=== PATIENT | female | born 1965 | race Hispanic/Latino ===

== ENCOUNTER 2021-12-10 18:26 | Inpatient (IN) | payer MEDICARE ==
[~2021-12-10] VITALS: Ht 157.5 cm; Wt 77.6 kg
[2021-12-10 18:51] LABS: BASOPHILS # (AUTO) 0.1 (0.0-0.1); BASOPHILS % 0.5 % (0.0-1.0); EOSINOPHILS # (AUTO) 0.2 (0.0-0.4); EOSINOPHILS % 1.6 % (0.0-6.0); HEMATOCRIT 44.6 % (34.2-44.1); HEMOGLOBIN 14.3 g/dL (12.0-16.0); LYMPHOCYTES # (AUTO) 2.8 (1.0-3.2); LYMPHOCYTES % 26.1 % (18.0-39.1); MEAN CORPUSCULAR HEMOGLOBIN 30.6 pg (28-32); MEAN CORPUSCULAR HGB CONC 32.1 g/dL (31-35); MEAN CORPUSCULAR VOLUME 95.5 fL (81-99); MONOCYTES # (AUTO) 0.7 (0.2-0.8); MONOCYTES % 6.6 % (4.4-11.3); NEUTROPHILS # (AUTO) 6.9 (2.1-6.9); NEUTROPHILS % 64.8 % (38.7-80.0); PLATELET COUNT 227 x10e3/uL (140-360); RED BLOOD COUNT 4.67 x10e6/uL (3.6-5.1); RED CELL DISTRIBUTION WIDTH 13.8 % (11.7-14.4)
[2021-12-10 19:00] LABS: INR 0.9; PARTIAL THROMBOPLASTIN TIME 29.9 seconds (23.8-35.5); PROTHROMBIN TIME 12.8 seconds (11.9-14.5)
[2021-12-10] MEDS ORDERED: DILTIAZEM HCL 5 MG/ML 5 ML VIAL IV ONE (19:00)
[2021-12-10 19:07] LABS: ALBUMIN 3.6 g/dL (3.5-5.0); ALBUMIN/GLOBULIN RATIO 0.9 (0.8-2.0); CALCIUM 9.3 mg/dL (8.4-10.2); CREATININE, SERUM 1.07 mg/dL (0.57-1.11)
[2021-12-10 19:15] LABS: CREATINE KINASE MB 1.7 ng/mL (0-5.0)
[2021-12-10] MEDS ORDERED: INSULIN REGULAR, HUMAN 100 UNIT/1 ML SQ ONE ×2 (19:15→22:45)
[2021-12-10] MEDS ORDERED: SODIUM CHLORIDE 0.9% 1000ML 1,000 ML IV ONE (19:15)
[2021-12-10] MEDS ORDERED: INSULIN REGULAR, HUMAN 100 UNIT/1 ML ONE (19:24)
[2021-12-10] MEDS ORDERED: SODIUM CHLORIDE 0.9% 1000ML 1,000 ML ONE (19:24)
[2021-12-10 19:49] LABS: CLARITY,URINE CLEAR (CLEAR); COLOR,URINE YELLOW (YELLOW); LEUKOCYTE ESTERASE ,URINE NEGATIVE (NEGATIVE); NITRITE,URINE NEGATIVE (NEGATIVE); PROTEIN,URINE DIPSTICK NEGATIVE (NEGATIVE)
[2021-12-10 19:50] LABS: KETONES,URINE NEGATIVE (NEGATIVE); URINE UROBILINOGEN 0.2 mg/dL (0.2 - 1)
[2021-12-10 20:00] LABS: BACTERIA,URINE FEW /HPF; EPITHELIAL CELLS,URINE FEW /LPF; RBC,URINE 0-5 /HPF (0-5); WBC,URINE (MAN) 0-5 /HPF (0-5)
[2021-12-10] MEDS ORDERED: AMIODARONE 900MG 500 ML IV ONE (20:00)
[2021-12-10] MEDS ORDERED: ACETAMINOPHEN 325 MG TAB PO ONE (20:00)
[2021-12-10] MEDS ORDERED: AMIODARONE HCL 150 MG/100 ML BAG IV ONE (20:00)
[2021-12-10] MEDS ORDERED: ACETAMINOPHEN 325 MG TAB ONE (20:04)
[2021-12-10] MEDS: INSULIN REGULAR, HUMAN 100 UNIT/1 ML SQ SCH (22:00)
[2021-12-10] MEDS ORDERED: MINERAL OIL 132 ML BTL PR ONE (22:00)
[2021-12-10] MEDS ORDERED: DEXTROSE 50% SYRINGE 50 ML IV PRN (22:00)
[2021-12-10] MEDS ORDERED: SODIUM CHLORIDE FLUSH 10 ML SYR INJ PRN (22:00)
[2021-12-10] MEDS: METOPROLOL TARTRATE 50 MG TAB PO SCH (22:00)
[2021-12-10] MEDS ORDERED: SOD PHOSPHATE/SOD BIPHOSPHATE ENEMA 132 ML BTL PR ONE (22:12)
[2021-12-10] MEDS: ENOXAPARIN INJ 80 MG/0.8 ML SYR SC SCH (22:38)
[2021-12-10 23:00] VITALS: BP 129/89
[2021-12-11] VITALS (25 sets, daily range): BP systolic 126–163; BP diastolic 49–89
[2021-12-11 02:29] LABS: CREATINE KINASE MB 3.4 ng/mL (0-5.0)
[2021-12-11] MEDS ORDERED: AMIODARONE 900MG 500 ML IV ONE (03:15)
[2021-12-11 05:26] LABS: BASOPHILS # (AUTO) 0.1 (0.0-0.1); BASOPHILS % 0.5 % (0.0-1.0); EOSINOPHILS # (AUTO) 0.2 (0.0-0.4); EOSINOPHILS % 1.4 % (0.0-6.0); HEMATOCRIT 39.4 % (34.2-44.1); HEMOGLOBIN 12.9 g/dL (12.0-16.0); LYMPHOCYTES % 27.2 % (18.0-39.1); MEAN CORPUSCULAR HEMOGLOBIN 30.8 pg (28-32); MEAN CORPUSCULAR HGB CONC 32.7 g/dL (31-35); MONOCYTES # (AUTO) 0.8 (0.2-0.8); MONOCYTES % 7.6 % (4.4-11.3); NEUTROPHILS # (AUTO) 6.8 (2.1-6.9); NEUTROPHILS % 62.7 % (38.7-80.0); PLATELET COUNT 220 x10e3/uL (140-360); RED BLOOD COUNT 4.19 x10e6/uL (3.6-5.1)
[2021-12-11 06:45] LABS: CREATINE KINASE MB 5.1 ng/mL (0-5.0)
[2021-12-11 06:51] LABS: ALBUMIN 3.1 g/dL (3.5-5.0); ALBUMIN/GLOBULIN RATIO 0.9 (0.8-2.0); ANION GAP 11.8 mmol/L (8-16); CALCIUM 8.5 mg/dL (8.4-10.2); CHOL/HDL RATIO 2.8 (3.0-3.6); CREATININE, SERUM 0.79 mg/dL (0.57-1.11); POTASSIUM 3.8 mmol/L (3.5-5.1)
[2021-12-11] MEDS: INSULIN REGULAR, HUMAN 100 UNIT/1 ML SQ SCH ×3 (08:49→20:35)
[2021-12-11] MEDS: ASPIRIN 81 MG ENTERIC COATED PO SCH (08:49)
[2021-12-11] MEDS: ENOXAPARIN INJ 80 MG/0.8 ML SYR SC SCH (08:49)
[2021-12-11] MEDS: METOPROLOL TARTRATE 50 MG TAB PO SCH ×2 (08:49→20:33)
[2021-12-11] MEDS ORDERED: BUSPIRONE HCL5 MG PO (10:52)
[2021-12-11] MEDS ORDERED: QUINAPRIL HCL20 MG PO (10:52)
[2021-12-11] MEDS ORDERED: ASPIRIN81 MG PO (10:52)
[2021-12-11] MEDS ORDERED: ATORVASTATIN CA20 MG PO (10:52)
[2021-12-11] MEDS ORDERED: NOVOLIN 70100 UNIT/3 SQ (10:52)
[2021-12-11] MEDS ORDERED: NEURONTIN300 MG PO (10:52)
[2021-12-11] MEDS ORDERED: PROZAC10 MG PO (10:52)
[2021-12-11] MEDS ORDERED: PROZAC20 MG PO (10:52)
[2021-12-11] MEDS ORDERED: NOVOLIN R100 UNIT/1 (10:52)
[2021-12-11] MEDS ORDERED: INSULIN LISPRO 100 UNIT/1 ML 3ML VIAL SQ SCH (11:30)
[2021-12-11] MEDS ORDERED: SODIUM CHLORIDE 0.9% 1000ML 1,000 ML IV SCH ×2 (11:45)
[2021-12-11] MEDS ORDERED: CLOPIDOGREL BISULFATE 75 MG TAB PO ONE ×3 (11:45→12:00)
[2021-12-11] MEDS: INSULIN GLARGINE 100 UNITS/ML VIAL SQ SCH (12:25)
[2021-12-11] MEDS ORDERED: ONDANSETRON HCL INJ 2MG/ML 2ML 2 MG/ML VIAL IV PRN (13:45)
[2021-12-11] MEDS: NICOTINE 21 MG/EA PATCH TOP SCH (14:09)
[2021-12-11] MEDS: ACETAMINOPHEN 325 MG TAB PO PRN ×2 (14:09→20:40)
[2021-12-11] MEDS: GABAPENTIN 300 MG CAP PO SCH ×2 (14:09→20:33)
[2021-12-11] MEDS: BUSPIRONE HCL 5 MG TAB PO SCH ×2 (14:09→20:32)
[2021-12-11 14:57] LABS: CREATINE KINASE MB 3.2 ng/mL (0-5.0)
[2021-12-11] MEDS ORDERED: DEXTROSE 50% SYRINGE 50 ML IV PRN (16:45)
[2021-12-11] MEDS: QUINAPRIL HCL 20 MG TAB PO SCH ×2 (17:00→18:33)
[2021-12-11] MEDS ORDERED: FLUOXETINE HCL 10 MG CAP PO SCH (21:00)
[2021-12-11] MEDS ORDERED: FLUOXETINE HCL 20 MG CAP PO SCH (21:00)
[2021-12-12] VITALS (32 sets, daily range): BP systolic 85–169; BP diastolic 34–125
[2021-12-12] MEDS: ACETAMINOPHEN 325 MG TAB PO PRN ×2 (04:20→11:03)
[2021-12-12 05:03] LABS: BASOPHILS % 0.3 % (0.0-1.0); EOSINOPHILS # (AUTO) 0.2 (0.0-0.4); EOSINOPHILS % 1.9 % (0.0-6.0); HEMATOCRIT 38.8 % (34.2-44.1); HEMOGLOBIN 12.8 g/dL (12.0-16.0); LYMPHOCYTES # (AUTO) 2.8 (1.0-3.2); LYMPHOCYTES % 29.4 % (18.0-39.1); MEAN CORPUSCULAR HEMOGLOBIN 30.9 pg (28-32); MEAN CORPUSCULAR VOLUME 93.7 fL (81-99); MONOCYTES # (AUTO) 0.8 (0.2-0.8); MONOCYTES % 8.1 % (4.4-11.3); NEUTROPHILS # (AUTO) 5.6 (2.1-6.9); NEUTROPHILS % 59.7 % (38.7-80.0); PLATELET COUNT 205 x10e3/uL (140-360); RED BLOOD COUNT 4.14 x10e6/uL (3.6-5.1); RED CELL DISTRIBUTION WIDTH 13.9 % (11.7-14.4)
[2021-12-12 05:18] LABS: MAGNESIUM 2.2 MG/DL (1.3-2.1)
[2021-12-12 05:45] LABS: THYROID STIMULATING HORMONE 1.488 uIU/mL (0.350-4.940)
[2021-12-12 06:01] LABS: ALBUMIN/GLOBULIN RATIO 0.9 (0.8-2.0); ANION GAP 12.2 mmol/L (8-16); CALCIUM 8.8 mg/dL (8.4-10.2); CHOL/HDL RATIO 3.1 (3.0-3.6); CREATININE, SERUM 0.74 mg/dL (0.57-1.11); POTASSIUM 4.2 mmol/L (3.5-5.1)
[2021-12-12] MEDS ORDERED: MIDAZOLAM HCL 2 MG/2 ML VIAL ONE (07:38)
[2021-12-12] MEDS ORDERED: HEPARIN SOD (PORCINE) 1000 UNIT/ML 30ML ONE (07:38)
[2021-12-12] MEDS ORDERED: FENTANYL CITRATE/PF 100MCG/2 ML INJ ONE (07:38)
[2021-12-12] MEDS ORDERED: LIDOCAINE HCL 2% LOCAL 20 ML VIAL ONE (07:38)
[2021-12-12] MEDS ORDERED: HEPARIN SOD/SOD CHLORIDE 2,000 ML ONE (07:39)
[2021-12-12] MEDS ORDERED: IOPAMIDOL 370 MG/ML 200 ML INFUS..BTL INJ ONE (07:39)
[2021-12-12] MEDS ORDERED: NITROGLYCERIN/D5W 200 MCG/ML 0 ML ONE (07:39)
[2021-12-12] MEDS ORDERED: SODIUM CHLORIDE 0.9% 1000ML 1,000 ML ONE (07:39)
[2021-12-12] MEDS ORDERED: ATROPINE SULFATE 0.1 MG/ML 10ML SYR ONE (08:51)
[2021-12-12] MEDS ORDERED: ATORVASTATIN 20 MG TAB PO SCH (09:00)
[2021-12-12] MEDS ORDERED: CLOPIDOGREL BISULFATE 75 MG TAB PO SCH ×2 (09:00)
[2021-12-12] MEDS: METOPROLOL TARTRATE 50 MG TAB PO SCH (09:34)
[2021-12-12] MEDS: GABAPENTIN 300 MG CAP PO SCH ×2 (09:34→15:22)
[2021-12-12] MEDS: ASPIRIN 81 MG ENTERIC COATED PO SCH (09:34)
[2021-12-12] MEDS: BUSPIRONE HCL 5 MG TAB PO SCH ×2 (09:34→15:22)
[2021-12-12] MEDS: NICOTINE 21 MG/EA PATCH TOP SCH (09:35)
[2021-12-12] MEDS: INSULIN REGULAR, HUMAN 100 UNIT/1 ML SQ SCH ×2 (10:44→12:18)
[2021-12-12] MEDS: INSULIN GLARGINE 100 UNITS/ML VIAL SQ SCH (10:45)
[2021-12-12] MEDS: QUINAPRIL HCL 20 MG TAB PO SCH (11:02)
== END 2021-12-12 16:42 | disposition home or self-care (01) | DRG 282 ==
LOC: ER 18:39 → ERHOLD 21:59 → ICU 23:01
PROVIDERS: ADMIT Internal Medicine; ATTEND Internal Medicine
PROC: 4A023N7 Measurement of Cardiac Sampling and Pressure, Left Heart, Percutaneous Approach (ICD-10-PCS; principal; 2021-12-12)
PROC: B2111ZZ Fluoroscopy of Multiple Coronary Arteries using Low Osmolar Contrast (ICD-10-PCS; 2021-12-12)
PROC: B2151ZZ Fluoroscopy of Left Heart using Low Osmolar Contrast (ICD-10-PCS; 2021-12-12)
DX: I48.0 Paroxysmal atrial fibrillation (principal); I21.A1 Myocardial infarction type 2; I10 Essential (primary) hypertension; F17.200 Nicotine dependence, unspecified, uncomplicated; I25.10 Atherosclerotic heart disease of native coronary artery without angina pectoris; F32.A Depression, unspecified; E78.00 Pure hypercholesterolemia, unspecified; G47.33 Obstructive sleep apnea (adult) (pediatric); Z79.4 Long term (current) use of insulin; E11.65 Type 2 diabetes mellitus with hyperglycemia; Z20.822 Contact with and (suspected) exposure to COVID-19
CPT/HCPCS: 36415; 51700; 70450; 71045; 80053; 80061; 81001; 82550; 82553; 82948; 83735; 84443; 84484; 85025; 85610; 85730; 93005; 93306; 93458; 94799; 96361; 96372; 99152; 99285; C1766; C1887; J1644; J1650; J1815; J1817; J2001; J2250; J3010; J7030; Q9967; U0002